=== PATIENT | female | born 1940 | race Caucasian/White ===

== ENCOUNTER 2025-07-22 10:12 | Outpatient (CLI) | payer MEDICARE, SELFPAY | END 2025-07-22 10:13 | disposition home or self-care (01) | LOC: INJ CL 10:15 | PROVIDERS: PCP Nurse Practitioner Family; Visit Provider Family Medicine | DX: M17.12 Unilateral primary osteoarthritis, left knee (principal); M25.562 Pain in left knee | CPT/HCPCS: 64454 ==

== ENCOUNTER 2025-08-26 06:55 | Outpatient (CLI) | payer MEDICARE, SELFPAY ==
--- NOTE | 2025-08-26 09:00 | P.ANES_ITS ---
Anesthesia Charges Start Date/Time Anesthesia Start Date: 08/26/25 Anesthesia Start Time: 08:23 Stop Date/Time Anesthesia Stop Date: 08/26/25 Anesthesia Stop Time: 08:58 Coding CPT Codes CPT Codes: ANESTH NERVE BLOCK/INJ - 43050 ([id number]) P3 - PATIENT W/SEVERE SYS DISEASE, QZ - AUDIO VISUAL AIDS DIRECTOR SVC W/O ASSOCIATE DEAN OF STUDENTS BY
--- NOTE | 2025-08-26 09:00 | W.ANESCHARGE ---
Anesthesia Charges Start Date/Time Anesthesia Start Date: 08/26/25 Anesthesia Start Time: 08:23 Stop Date/Time Anesthesia Stop Date: 08/26/25 Anesthesia Stop Time: 08:58 Coding CPT Codes CPT Codes: ANESTH NERVE BLOCK/INJ - 38923 ([id number]) P3 - PATIENT W/SEVERE SYS DISEASE, QZ - FURNACE STOCK INSPECTOR SVC W/O EDUCATION REP BY
== END 2025-08-26 06:56 | disposition home or self-care (01) ==
LOC: INJ CL 06:55
PROVIDERS: PCP Nurse Practitioner Family; Visit Provider Family Medicine
DX: M17.12 Unilateral primary osteoarthritis, left knee (principal); M25.562 Pain in left knee; G89.29 Other chronic pain
CPT/HCPCS: 01991; 64624; J2704